=== PATIENT | female | born 2000 | race Caucasian/White ===

== ENCOUNTER 2019-01-01 20:33 | Emergency (ER) | payer OTHER ==
[2019-01-01] MEDS ORDERED: ACETAMINOPHEN 325 MG TABLET PO STA (21:15)
--- NOTE | 2019-01-01 21:16 | ED Physician Documentation ---
PD HPI URI - Stated complaint Stated Complaint: FEVER/CHEST PX - Chief complaint Chief Complaint: Resp - History obtained from History obtained from: Patient, Friend - History of Present Illness Timing - onset: Yesterday Timing duration: Days (2) Timing details: Gradual onset Pain level max: 3 Pain level now: 2 Associated symptoms: Fever, Nasal congestion, Sore throat, Dry cough Contributing factors: No: Travel, Immunocompromised, Unimmunized Improves by: Rest Worsened by: Activity, Breathing Recently seen: Not recently seen Review of Systems Ten Systems: 10 systems reviewed and negative Constitutional: reports: Fever, Chills Ears: denies: Ear pain Nose: reports: Rhinorrhea / runny nose, Congestion Throat: reports: Sore throat Respiratory: reports: Cough. denies: Dyspnea, Wheezing GI: denies: Nausea, Vomiting, Diarrhea : denies: Now EGA Skin: denies: Rash Musculoskeletal: denies: Neck pain, Back pain Neurologic: denies: Focal weakness, Numbness, Headache PD PAST MEDICAL HISTORY - Past Medical History Past Medical History: No - Past Surgical History Past Surgical History: No - Present Medications Home Medications: Ambulatory Orders Medication Instructions Recorded Confirmed No Known Home Medications 01/01/19 01/01/19 - Allergies Allergies/Adverse Reactions: Allergies Allergy/AdvReac Type Severity Reaction Status Date / Time Penicillins Allergy Hives Verified 01/01/19 20:53 - Social History Does the pt smoke?: Yes Smoking Status: Current every day smoker Does the pt drink ETOH?: No Does the pt have substance abuse?: No - Immunizations Immunizations are current?: Yes Immunizations: TDAP current <10years - POLST Patient has POLST: No PD ED PE NORMAL - Vitals Vital signs reviewed: Yes - General General: Alert and oriented X 3, No acute distress, Well developed/nourished - HEENT HEENT: PERRL, Ears normal, Moist mucous membranes, Other (Mild posterior oropharyngeal erythema without tonsillar exudates. Uvula midline. No trismus. Normal phonation.) - Neck Neck: Supple, no meningeal sign, No adenopathy - Cardiac Cardiac: RRR, Strong equal pulses - Respiratory Respiratory: No respiratory distress, Other (bibasilar rhonchi) - Abdomen Abdomen: Soft, Non tender, Non distended - Back Back: No spinal TTP - Derm Derm: Warm and dry, No rash - Extremities Extremities: No edema - Neuro Neuro: Alert and oriented X 3 - Psych Psych: Normal mood, Normal affect Results - Vitals Vitals: Vital Signs - 24 hr 01/01/19 01/01/19 20:51 22:20 Temperature 38.1 C H 37 C Heart Rate 121 H 101 H Respiratory 21 17 Rate Blood Pressure 114/73 126/68 O2 Saturation 100 99 Oxygen O2 Source Room air - Labs Labs: Laboratory Tests 01/01/19 21:13 Group A Strep Rapid Negative - Rads (name of study) cxr Radiology: Prelim report reviewed, EMP read contemporaneously, See rad report (normal) PD MEDICAL DECISION MAKING - ED course Complexity details: reviewed results, re-evaluated patient, considered differential, d/w patient ED course: 18-year-old female presents to the emergency department with what appears to be viral upper respiratory infection. Negative rapid strep. Negative chest x-ray. She states that her heart rate is always fast. We will continue supportive care and follow-up with her doctor. Patient is very well-appearing, nontoxic. Patient counseled regarding signs and symptoms for which I believe and urgent re-evaluation would be necessary. Patient with good understanding of and agreement to plan and is comfortable going home at this time This document was made in part using voice recognition software. While efforts are made to proofread this document, sound alike and grammatical errors may occur. Departure - Departure Disposition: 01 Home, Self Care Clinical Impression: Upper respiratory tract infection Qualifiers: URI type: unspecified viral URI Qualified Code(s): J06.9 - Acute upper respiratory infection, unspecified Condition: Good Instructions: ED URI Viral Follow-Up: your,doctor in 1 week if not better [Other] Comments: Return if you worsen. You can use Motrin or Tylenol as needed for fever. Your x-ray is normal and your strep test is negative. Follow-up with your doctor for further care. Forms: Activity restrictions Discharge Date/Time: 01/01/19 22:20
--- NOTE | 2019-01-01 22:10 | XRAY Report ---
Reason: cough Procedure Date: 01/01/2019 Accession Number: [id number] / [id number] Procedure: XR - Chest 2 View X-Ray CPT Code: 03211 FULL RESULT: EXAM: CHEST RADIOGRAPHY EXAM DATE: 01/01/2019 09:30 PM. CLINICAL HISTORY: Cough. COMPARISON: None. TECHNIQUE: 2 views. FINDINGS: Lungs/Pleura: No focal opacities evident. No pleural effusion. No pneumothorax. Normal volumes. Mediastinum: Heart and mediastinal contours are unremarkable. Other: None. IMPRESSION: Normal 2-view chest radiography. [facility]
[2019-01-01 22:22] VITALS: BP 126/68
== END 2019-01-01 22:20 | disposition home or self-care (01) ==
LOC: ED 20:33
DX: J06.9 Acute upper respiratory infection, unspecified (principal); F17.200 Nicotine dependence, unspecified, uncomplicated
CPT/HCPCS: 71046; 87070; 87430; 99283; A9270

== ENCOUNTER 2019-04-24 14:58 | Emergency (ER) | payer OTHER ==
[2019-04-24 15:03] VITALS: BP 130/100
--- NOTE | 2019-04-24 16:04 | ED Physician Documentation ---
History of Present Illness - Stated complaint Stated Complaint: L EYE SWELLING - Chief complaint Chief Complaint: Heent - History obtained from History obtained from: Patient - History of Present Illness Timing: Today Pain level max: 0 Pain level now: 0 - Additonal information Additional information: L upper eyelid swelling. Started today. Used warm compresses x 1. no change. no fevers. no vision changes. nothing makes it better or worse Review of Systems Constitutional: denies: Fever, Chills Eyes: denies: Decreased vision, Photophobia Nose: denies: Rhinorrhea / runny nose, Congestion GI: denies: Vomiting Skin: denies: Rash Musculoskeletal: denies: Neck pain, Back pain Neurologic: denies: Headache PD PAST MEDICAL HISTORY - Past Medical History Past Medical History: No - Past Surgical History Past Surgical History: No - Present Medications Home Medications: Ambulatory Orders Medication Instructions Recorded Confirmed Erythromycin Base [Erythromycin 1 applic LEFTEYE QPM #1 oint...g. 04/24/19 Ophthalmic Ointment] - Allergies Allergies/Adverse Reactions: Allergies Allergy/AdvReac Type Severity Reaction Status Date / Time Penicillins Allergy Hives Verified 04/24/19 15:03 - Social History Does the pt smoke?: Yes Smoking Status: Current every day smoker Does the pt drink ETOH?: No Does the pt have substance abuse?: No - Immunizations Immunizations are current?: Yes Immunizations: TDAP current <10years - POLST Patient has POLST: No PD ED PE NORMAL - Vitals Vital signs reviewed: Yes - General General: Alert and oriented X 3, No acute distress - HEENT HEENT: Moist mucous membranes, Other (Left upper eyelid is mildly swollen otherwise normal exam of the eye and periorbital area. No drainage.) - Neck Neck: Supple, no meningeal sign - Cardiac Cardiac: RRR - Respiratory Respiratory: No respiratory distress, Clear bilaterally - Derm Derm: Warm and dry - Neuro Neuro: Alert and oriented X 3 Results - Vitals Vitals: Vital Signs - 24 hr 04/24/19 15:01 Temperature 36.6 C Heart Rate 100 Respiratory 19 Rate Blood Pressure 130/100 H O2 Saturation 98 Oxygen O2 Source Room air PD MEDICAL DECISION MAKING - ED course Complexity details: considered differential, d/w patient ED course: Patient with left upper eyelid blepharitis. Recommend lid cleansing and warm compresses. Will prescribe erythromycin ointment as well. Patient is well- appearing, nontoxic. Does not wear contacts. Patient counseled regarding signs and symptoms for which I believe and urgent re-evaluation would be necessary. Patient with good understanding of and agreement to plan and is comfortable going home at this time This document was made in part using voice recognition software. While efforts are made to proofread this document, sound alike and grammatical errors may occur. Departure - Departure Disposition: 01 Home, Self Care Clinical Impression: Blepharitis of eyelid of left eye Qualifiers: Blepharitis type: unspecified type Eyelid: upper Qualified Code(s): H01.004 - Unspecified blepharitis left upper eyelid Condition: Good Instructions: ED Inflammation Eyelid Follow-Up: BRIAN SOTELO DO [Primary Care Provider] - Within 1 week Prescriptions: Erythromycin Base [Erythromycin Ophthalmic Ointment] 1 applic LEFTEYE QPM #1 oint...g. Comments: Put warm, wet pressure on your eyes Wet a clean wash cloth with warm (not scalding hot) water and put it over your eyes. When the wash cloth cools, reheat it with warm water and put it back over your eyes. Repeat these steps for 5 minutes, 2 to 4 times a day. ?Gently rub your eyelids Do this right after putting warm, wet pressure on your eyes. Use the washcloth or a clean fingertip to gently rub your eyelid in small circles. ?Wash your eyelids Use plain warm water or warm water with a drop of baby shampoo on a clean washcloth, gauze pad, or cotton swab. Gently clean any crusty material off the eyelashes and eyelids. Do not rub hard or you can cause more irritation. You can also use [id number] eyelid scrubs and pads. Return if you worsen. Use the medication as prescribed. This may take 1 to 2 weeks to fully heal Discharge Date/Time: 04/24/19 16:24
== END 2019-04-24 16:24 | disposition home or self-care (01) ==
LOC: ED 14:58
DX: H01.004 Unspecified blepharitis left upper eyelid (principal); F17.200 Nicotine dependence, unspecified, uncomplicated
CPT/HCPCS: 99282; 99283

== ENCOUNTER 2019-04-28 16:21 | Emergency (ER) | payer OTHER ==
[2019-04-28 16:30] VITALS: BP 130/85
--- NOTE | 2019-04-28 17:40 | ED Physician Documentation ---
History of Present Illness - Stated complaint Stated Complaint: THROAT PX/SWELLING - Chief complaint Chief Complaint: General PD PAST MEDICAL HISTORY - Past Medical History Past Medical History: No - Past Surgical History Past Surgical History: No - Present Medications Home Medications: Ambulatory Orders Medication Instructions Recorded Confirmed Erythromycin Base [Erythromycin 1 applic LEFTEYE QPM #1 oint...g. 04/24/19 Ophthalmic Ointment] - Allergies Allergies/Adverse Reactions: Allergies Allergy/AdvReac Type Severity Reaction Status Date / Time Penicillins Allergy Hives Verified 04/24/19 15:03 - Social History Does the pt smoke?: Yes Smoking Status: Current every day smoker Does the pt drink ETOH?: No Does the pt have substance abuse?: No - Immunizations Immunizations are current?: Yes Immunizations: TDAP current <10years - POLST Patient has POLST: No Results - Vitals Vitals: Vital Signs - 24 hr 04/28/19 16:27 Temperature 36.9 C Heart Rate 94 Respiratory 16 Rate Blood Pressure 130/85 H O2 Saturation 100 Oxygen O2 Source Room air - Labs Labs: Laboratory Tests 04/28/19 16:30 Group A Strep Rapid Negative
[2019-04-28] MEDS ORDERED: DEXAMETHASONE 10 MG/ML VIAL PO STA (17:46)
[2019-04-28] MEDS ORDERED: CHERRY SYRUP 10 ML UDC PO ONE (17:46)
--- NOTE | 2019-04-28 17:48 | ED Physician Documentation ---
PD HPI HEENT - Stated complaint Stated Complaint: THROAT PX/SWELLING - Chief complaint Chief Complaint: General - History obtained from History obtained from: Patient - History of Present Illness Timing - onset: How many days ago (2) Timing - duration: Days (2) Timing - details: Gradual onset, Still present Location: Throat Improves: Medication Worsens: Swalllowing Associated symptoms: Fever, Congestion, Unable to swallow, Swollen nodes, Headache. No: Cough Similar symptoms before: Diagnosis (strep) Recently seen: Not recently seen - Additional information Additional information: Previously well 18-year-old female has developed a sore throat she denies any cough she is had a fever and aches. She is having some trouble swallowing even her spit. She has a bit of pain in the back of her throat and some swelling. Review of Systems Constitutional: reports: Fever, Chills, Myalgias, Fatigue Eyes: denies: Decreased vision Ears: denies: Ear pain Nose: reports: Rhinorrhea / runny nose, Congestion Throat: reports: Sore throat Cardiac: denies: Chest pain / pressure, Palpitations Respiratory: denies: Dyspnea, Cough GI: reports: Diarrhea. denies: Abdominal Pain, Nausea, Vomiting : denies: Dysuria, Frequency PD PAST MEDICAL HISTORY - Past Medical History Past Medical History: No - Past Surgical History Past Surgical History: No - Present Medications Home Medications: Ambulatory Orders Medication Instructions Recorded Confirmed Erythromycin Base [Erythromycin 1 applic LEFTEYE QPM #1 oint...g. 04/24/19 Ophthalmic Ointment] Azithromycin [Zithromax] 250 mg PO DAILY #6 tablet 04/28/19 - Allergies Allergies/Adverse Reactions: Allergies Allergy/AdvReac Type Severity Reaction Status Date / Time Penicillins Allergy Hives Verified 04/24/19 15:03 - Social History Does the pt smoke?: Yes Smoking Status: Current every day smoker Does the pt drink ETOH?: No Does the pt have substance abuse?: No - Immunizations Immunizations are current?: Yes Immunizations: TDAP current <10years - POLST Patient has POLST: No PD ED PE NORMAL - Vitals Vital signs reviewed: Yes (hypertensive ) - General General: Alert and oriented X 3, No acute distress, Well developed/nourished - HEENT HEENT: Atraumatic, PERRL, EOMI, Ears normal, Other (pharynx is with 3+ tonsils with exudate and marked erythema. there are no blisters or ulcerations) - Neck Neck: Supple, no meningeal sign, No bony TTP - Cardiac Cardiac: RRR, No murmur - Respiratory Respiratory: No respiratory distress, Clear bilaterally - Abdomen Abdomen: Soft, Non tender - Derm Derm: Normal color, Warm and dry, No rash - Extremities Extremities: No deformity, No edema - Neuro Neuro: Alert and oriented X 3, price economist 2-12 intact, No motor deficit, No sensory deficit, Normal speech Eye Opening: Spontaneous Motor: Obeys Commands Verbal: Oriented GCS Score: 15 - Psych Psych: Normal mood, Normal affect Results - Vitals Vitals: Vital Signs - 24 hr 04/28/19 16:27 Temperature 36.9 C Heart Rate 94 Respiratory 16 Rate Blood Pressure 130/85 H O2 Saturation 100 Oxygen O2 Source Room air - Labs Labs: Laboratory Tests 04/28/19 16:30 Group A Strep Rapid Negative PD MEDICAL DECISION MAKING - ED course Complexity details: reviewed results, considered differential, d/w patient ED course: 18-year-old female with a sore throat as marked tonsillar hypertrophy with exudate and angry erythema her rapid strep is negative. She is administered Dexamethasone 10 mg orally we will place her on some azithromycin as she is allergic to penicillin and we will give her a note for work for 3 days. Departure - Departure Disposition: 01 Home, Self Care Clinical Impression: Acute tonsillitis Qualifiers: Pharyngitis/tonsillitis etiology: unspecified etiology Qualified Code(s): J03.90 - Acute tonsillitis, unspecified Condition: Stable Instructions: ED Tonsillitis Follow-Up: [facility] [Provider Group] Prescriptions: Azithromycin [Zithromax] 250 mg PO DAILY #6 tablet Forms: Activity restrictions
== END 2019-04-28 17:57 | disposition home or self-care (01) ==
LOC: ED 16:21
DX: J03.90 Acute tonsillitis, unspecified (principal); F17.200 Nicotine dependence, unspecified, uncomplicated
CPT/HCPCS: 87070; 87430; 99283; 99284; A9270

== ENCOUNTER 2020-08-09 19:16 | Emergency (ER) | payer OTHER ==
[2020-08-09] MEDS ORDERED: SODIUM CHLORIDE 0.9% 1,000 ML IV STA (19:31)
--- NOTE | 2020-08-09 19:42 | ED Physician Documentation ---
History of Present Illness - Stated complaint Stated Complaint: LEGS SWELLING - Chief complaint Chief Complaint: Wound - History obtained from History obtained from: Patient - History of Present Illness Timing: Prior to arrival - Additonal information Additional information: 20-year-old female presents emergency department for evaluation of a new rash that began on her right leg but has since progressed to include her left leg. She was started on Celecoxib yesterday for dysmenorrhea. She took 1 dose last night. This morning she woke up feeling normal and had no cutaneous lesions. About 2 PM this afternoon she felt some itchiness and swelling on her right medial knee and thigh. She went to the bathroom and found that she had some erythema that has since progressed to include behind the knee as well as the thigh. The distal parts of the rash do have some minor petechiae. Since seeing the rash develop on the right leg she has also had new similar appearance on the left medial knee and thigh. She denies any chest pain or dyspnea. She has no oral lesions. No hx of similar reports hx of hives secondary to pcn and amoxicillin has nexplanon in place. No hx of DVT Review of Systems Constitutional: reports: Reviewed and negative Eyes: reports: Reviewed and negative Ears: reports: Reviewed and negative Nose: reports: Reviewed and negative Throat: denies: Oral lesions / sores Cardiac: denies: Chest pain / pressure, Palpitations, Pedal edema, Calf pain Respiratory: reports: Reviewed and negative GI: reports: Reviewed and negative : reports: Dysuria Skin: reports: Rash Musculoskeletal: reports: Reviewed and negative Neurologic: reports: Reviewed and negative PD PAST MEDICAL HISTORY - Past Medical History Past Medical History: Yes - Past Surgical History Past Surgical History: No - Present Medications Home Medications: Ambulatory Orders Medication Instructions Recorded Confirmed Celecoxib [Celebrex] 200 mg PO DAILY 08/09/20 08/09/20 diphenhydrAMINE [Benadryl] 25 mg PO BID #15 capsule 08/09/20 - Allergies Allergies/Adverse Reactions: Allergies Allergy/AdvReac Type Severity Reaction Status Date / Time celecoxib Allergy Rash Verified 08/09/20 21:43 Penicillins Allergy Hives Verified 08/09/20 19:24 - Social History Does the pt smoke?: Yes Smoking Status: Current every day smoker Does the pt drink ETOH?: No Does the pt have substance abuse?: No - Immunizations Immunizations are current?: Yes Immunizations: TDAP current <10years - POLST Patient has POLST: No PD ED PE EXPANDED - General General: Alert, No acute distress, Anxious - Neck Neck: Supple w/out meningeal sx. No: No tenderness - Cardiac Cardiac: Tachy, Radial strong equal, Femoral strong equal, Pedal strong equal, Cap refill < 2 sec - Respiratory Respiratory: Clear to ausultation nina. No: Distress, Labored - Abdomen Abdomen: Normal Bowel sounds. No: Tender to palpation - Derm Derm: Rash, Petecchiae, Other (Bilateral medial knees and inner thighs with extensive blanchable erythema. Nonvesicular. Distal edges of the rash show multiple small petechiae.) - Extremities Extremities: Normal, Pedal Pulses Present. No: Pedal edema R, Pedal edema L, Pedal edema bilateral, Right calf TTP/cord, Left calf TTP/cord - Neuro Neuro: Alert and Oriented X 3, CNII-XII intact, Normal gait, Normal finger nose, Normal speech - GCS Eye Opening: Spontaneous Motor: Obeys Commands Verbal: Oriented Total: 15 Results - Vitals Vitals: Vital Signs - 24 hr 08/09/20 08/09/20 08/09/20 19:17 19:28 20:11 Temperature 37.5 C 37.5 C 37.5 C Heart Rate 121 H 121 H 96 Respiratory 17 17 17 Rate Blood Pressure 134/67 H 134/67 H 134/66 H O2 Saturation 100 100 100 Oxygen O2 Source Room air - Labs Labs: Laboratory Tests 08/09/20 08/09/20 08/09/20 19:40 19:40 19:40 WBC 8.5 RBC 4.79 Hgb 14.5 Hct 42.4 MCV 88.5 MCH 30.3 MCHC 34.2 RDW 12.0 Plt Count 192 MPV 10.4 Neut # (Auto) 4.4 Lymph # (Auto) 3.2 George # (Auto) 0.7 Eos # (Auto) 0.1 Baso # (Auto) 0.0 Absolute Nucleated RBC 0.00 Nucleated RBC % 0.0 ESR PT 12.2 INR 1.1 Sodium 136 Potassium 3.1 L Chloride 101 Carbon Dioxide 25 Anion Gap 10.0 BUN 16 Creatinine 0.8 Estimated GFR (MDRD) 91 Glucose 121 H Calcium 9.4 Total Bilirubin 0.7 AST 15 ALT 13 Alkaline Phosphatase 60 C-Reactive Protein < 1.0 Total Protein 6.9 Albumin 4.1 Globulin 2.8 Albumin/Globulin Ratio 1.5 Lipase 22 Urine Color Urine Clarity Urine pH Ur Specific [place] Urine Protein Urine Glucose (UA) Urine Ketones Urine Occult Blood Urine Nitrite Urine Bilirubin Urine Urobilinogen Ur Leukocyte Esterase Urine RBC Urine WBC Ur Squamous Epith Cells Urine Bacteria Ur Microscopic Review Urine Culture Comments Urine HCG, Qual 08/09/20 08/09/20 08/09/20 19:40 20:23 20:23 WBC RBC Hgb Hct MCV MCH MCHC RDW Plt Count MPV Neut # (Auto) Lymph # (Auto) George # (Auto) Eos # (Auto) Baso # (Auto) Absolute Nucleated RBC Nucleated RBC % ESR 2 PT INR Sodium Potassium Chloride Carbon Dioxide Anion Gap BUN Creatinine Estimated GFR (MDRD) Glucose Calcium Total Bilirubin AST ALT Alkaline Phosphatase C-Reactive Protein Total Protein Albumin Globulin Albumin/Globulin Ratio Lipase Urine Color YELLOW Urine Clarity CLEAR Urine pH 6.5 Ur Specific [place] 1.025 1.025 Urine Protein NEGATIVE Urine Glucose (UA) NEGATIVE Urine Ketones NEGATIVE Urine Occult Blood LARGE H Urine Nitrite NEGATIVE Urine Bilirubin NEGATIVE Urine Urobilinogen 0.2 (NORMAL) Ur Leukocyte Esterase NEGATIVE Urine RBC 6-10 H Urine WBC 0-3 Ur Squamous Epith Cells RARE Squamous Urine Bacteria Rare Ur Microscopic Review INDICATED Urine Culture Comments NOT INDICATED Urine HCG, Qual NEGATIVE - Rads (name of study) US DVT Radiology: See rad report, Other (Tech reports that no DVT seen on bilateral lower extremity ultrasound.) PD MEDICAL DECISION MAKING - ED course Complexity details: reviewed results, re-evaluated patient, considered differential, d/w patient ED course: 20-year-old female presents the emergency department for evaluation of a rash that developed first on her right inner thigh and now her left inner thigh since about 2 PM this afternoon. It is a diffuse macular rash nonvesicular And does have petechiae on the outlying edges. - Given that this rash is on both medial sides of the knees and thighs, it is felt less likely to be cellulitis. In addition there is no fever or leukocytosis - Differential for this rash also includes an allergic vasculitis vs a dermatitis. Reassuringly her blood count is normal. She has no eosinophilia. Her kidney and liver function is preserved without any abnormalities. A urinanylasis was completed. She is currently on her menses which explains the RBCs. She is not spilling protein. - I feel that the most likely etiology of this rash is an allergic reaction to this lock sib which she took last night. Here in the emergency department she was given 50 mg of Benadryl as well as 10 mg of Decadron. An ultrasound will be completed to rule out deep vein thrombosis though suspicion for one at this time is clinically low. - Patient will be advised to follow-up closely with [facility] tomorrow. If the rash is worsening or extending, she develops Nikolsky sign or has any oral lesions she will return immediately to the ER - Departure - Departure Disposition: Home, Self Care Clinical Impression: Rash Allergic reaction caused by a drug Qualifiers: Encounter type: initial encounter Qualified Code(s): T78.40XA - Allergy, unspecified, initial encounter Condition: Stable Record reviewed to determine appropriate education?: Yes Prescriptions: diphenhydrAMINE [Benadryl] 25 mg PO BID #15 capsule Comments: I hope that you are feeling better soon. As we discussed the most likely cause of your rash is an allergic reaction to the Celebrex. Do not take this anymore. I have added it to your allergy list. I would like you to take the Benadryl twice a day for the next few days. Today you were also given a dose of Decadron in the emergency department and this is a steroid that should help with the rash over the next 2 to 3 days. Please discuss this ED visit with [facility] tomorrow. If you find that your rash is worsening in any way, you develop blistering, have blisters or lesions in your mouth, have any shortness of breath or chest pain please return immediately to the ER.
[2020-08-09 19:47] LABS: BASOPHILS % (AUTO) 0.2 %; EOSINOPHILS # (AUTO) 0.1 10^3/uL (0.0-0.7); EOSINOPHILS % (AUTO) 0.9 %; HGB - HEMOGLOBIN 14.5 g/dL (12.0-16.0); LYMPHOCYTES # (AUTO) 3.2 10^3/uL (1.5-3.5); MEAN CORPUSCULAR HEMOGLOBIN 30.3 pg (27.0-31.0); MEAN CORPUSCULAR HGB CONC 34.2 g/dL (32.0-36.0); MEAN CORPUSCULAR VOLUME 88.5 fL (81.0-99.0); MEAN PLATELET VOLUME 10.4 fL (7.9-10.8); MONOCYTES # (AUTO) 0.7 10^3/uL (0.0-1.0); MONOCYTES % (AUTO) 8.5 %; NEUTROPHILS # (AUTO) 4.4 10^3/uL (1.5-6.6); PLT - PLATELET COUNT 192 10^3/uL (130-450); RED BLOOD COUNT 4.79 10^6/uL (4.20-5.40); WHITE BLOOD COUNT 8.5 x10^3/uL (4.8-10.8)
[2020-08-09 19:53] LABS: INR 1.1 (0.8-1.2); PT - PROTHROMBIN TIME 12.2 secs (9.9-12.6)
[2020-08-09] MEDS ORDERED: diphenhydrAMINE INJ 50 MG/ML VIAL IVP STA (19:57)
[2020-08-09 20:06] LABS: ALBUMIN 4.1 g/dL (3.2-5.5); ALBUMIN/GLOBULIN RATIO 1.5 (1.0-2.2); ALKALINE PHOSPHATASE 60 IU/L (42-121); ALT ALANINE AMINOTRANSFERASE 13 IU/L (10-60); AST ASPARTATE AMINOTRANSFERASE 15 IU/L (10-42); BILIRUBIN,TOTAL 0.7 mg/dL (0.2-1.0); BUN - BLOOD UREA NITROGEN 16 mg/dL (6-20); CALCIUM 9.4 mg/dL (8.5-10.3); CARBON DIOXIDE - CO2 25 mmol/L (21-32); CHLORIDE 101 mmol/L (101-111); CREATININE 0.8 mg/dL (0.4-1.0); GLUCOSE 121 mg/dL (70-100); LIPASE 22 U/L (22-51); SODIUM 136 mmol/L (135-145); TOTAL PROTEIN 6.9 g/dL (6.7-8.2)
[2020-08-09 20:09] LABS: CRP - C-REACTIVE PROTEIN < 1.0 mg/dL (0-1.0)
[2020-08-09] MEDS ORDERED: DEXAMETHASONE 10 MG/ML VIAL PO STA (20:21)
[2020-08-09] MEDS ORDERED: CHERRY SYRUP 10 ML UDC PO ONE (20:21)
[2020-08-09 20:37] LABS: BILIRUBIN,URINE NEGATIVE (NEGATIVE); GLUCOSE, URINE (UA) NEGATIVE (NEGATIVE); KETONES,URINE (UA) NEGATIVE (NEGATIVE); LEUKOCYTE ESTERASE, URINE NEGATIVE (NEGATIVE); NITRITE,URINE NEGATIVE (NEGATIVE); OCCULT BLOOD,URINE LARGE (NEGATIVE); PH,URINE 6.5 PH (5.0-7.5); PROTEIN,URINE NEGATIVE (NEGATIVE); UROBILINOGEN,URINE 0.2 (NORMAL) E.U./dL (NORMAL)
[2020-08-09 20:40] LABS: CLARITY,URINE CLEAR (CLEAR); HCG UR QUAL NEGATIVE
[2020-08-09 20:49] LABS: BACTERIA,URINE Rare /HPF (None Seen); SQUAMOUS EPITHELIAL CELL,UR RARE Squamous (<= Few)
[2020-08-09 22:07] VITALS: BP 120/78
--- NOTE | 2020-08-09 22:22 | Ultrasound Report ---
PROCEDURE: Duplex Ext Veins Bilateral INDICATIONS: AIDE FRANKS TECHNIQUE: Real-time imaging, as well as color and pulse Doppler interrogation, were performed of the deep veins of both legs from the inguinal ligament to the popliteal fossa. COMPARISON: None. FINDINGS: The deep veins are normally compressible, and free of intraluminal thrombus. Color and pu lse Doppler demonstrate normal phasic intravascular flow. There is normal augmentation response to d istal compression maneuver. IMPRESSION: No deep vein thrombosis of the bilateral lower extremities. Reviewed by: Becca Hare MD on 08/09/2020 10:20 PM PST Approved by: Becca Hare MD on 08/09/2020 10:20 PM [facility] Station ID: [id number]
== END 2020-08-09 22:14 | disposition home or self-care (01) ==
LOC: ED 19:16
DX: L27.1 Localized skin eruption due to drugs and medicaments taken internally (principal); R22.43 Localized swelling, mass and lump, lower limb, bilateral; T39.395A Adverse effect of other nonsteroidal anti-inflammatory drugs [NSAID], initial encounter; F17.200 Nicotine dependence, unspecified, uncomplicated; Z88.0 Allergy status to penicillin
CPT/HCPCS: 36415; 80053; 81001; 81025; 83690; 85025; 85610; 85651; 86140; 93970; 96361; 96374; 99284; A9270; J1200; 81003; 87086

== ENCOUNTER 2021-01-02 10:44 | Emergency (ER) | payer OTHER ==
--- OUTSIDE RECORDS SUMMARY | 2021-01-02 11:30 | EXTERNAL MEDICAL SUMMARY RPT | Continuity of Care Document ---
:2000 Demographics Phone Unavailable Preferred Language Unknown Marital Status Unknown Confucianist Affiliation Unknown Race Unknown Ethnic Group Unknown Author Organization [facility] Address [address] [id number] Phone Social History date description facility [id number]
[2021-01-02 12:19] LABS: BASOPHILS % (AUTO) 0.2 %; EOSINOPHILS % (AUTO) 0.4 %; HCT - HEMATOCRIT 42.9 % (37.0-47.0); HGB - HEMOGLOBIN 14.7 g/dL (12.0-16.0); LYMPHOCYTES # (AUTO) 2.2 10^3/uL (1.5-3.5); LYMPHOCYTES % (AUTO) 24.9 %; MEAN CORPUSCULAR HEMOGLOBIN 30.2 pg (27.0-31.0); MEAN CORPUSCULAR HGB CONC 34.3 g/dL (32.0-36.0); MEAN CORPUSCULAR VOLUME 88.3 fL (81.0-99.0); MEAN PLATELET VOLUME 10.1 fL (7.9-10.8); MONOCYTES # (AUTO) 0.7 10^3/uL (0.0-1.0); MONOCYTES % (AUTO) 8.3 %; NEUTROPHILS # (AUTO) 5.9 10^3/uL (1.5-6.6); PLT - PLATELET COUNT 207 10^3/uL (130-450); RED BLOOD COUNT 4.86 10^6/uL (4.20-5.40); RED CELL DISTRIBUTION WIDTH 11.9 % (12.0-15.0)
[2021-01-02 12:32] LABS: ALBUMIN 4.4 g/dL (3.2-5.5); ALBUMIN/GLOBULIN RATIO 1.4 (1.0-2.2); BILIRUBIN,TOTAL 0.8 mg/dL (0.2-1.0); CALCIUM 9.5 mg/dL (8.5-10.3); CREATININE 0.6 mg/dL (0.4-1.0); POTASSIUM 3.9 mmol/L (3.5-5.0); TOTAL PROTEIN 7.6 g/dL (6.7-8.2)
--- NOTE | 2021-01-02 13:15 | ED Physician Documentation ---
PD HPI FEMALE - Stated complaint Stated Complaint: VOMITING BLOOD - Chief complaint Chief Complaint: Abd Pain - History obtained from History obtained from: Patient - History of Present Illness Timing - onset: Today, Last night Timing - duration: Hours Timing - details: Abrupt onset, Still present Associated symptoms: Abdominal pain, Pelvic pain (right lower abd). 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 Has initial appt tomorrow. Onset of RLQ pain abruptly today.) Review of Systems Constitutional: denies: Fever, Chills Nose: denies: Rhinorrhea / runny nose, Congestion Throat: denies: Sore throat Cardiac: denies: Chest pain / pressure Respiratory: denies: Cough GI: reports: Abdominal Pain, Nausea, Vomiting (onset after the RLQ pain. nausea with vomiting several times and noted red blood in emesis after initial vomit.), Hematemesis. denies: Constipation, Diarrhea Neurologic: reports: Generalized weakness. denies: Near syncope, Syncope PD PAST MEDICAL HISTORY - Past Medical History Cardiovascular: None Respiratory: None - Past Surgical History Past Surgical History: No - Present Medications Home Medications: Ambulatory Orders Medication Instructions Recorded Confirmed Celecoxib [Celebrex] 200 mg PO DAILY 08/09/20 08/09/20 diphenhydrAMINE [Benadryl] 25 mg PO BID #15 capsule 08/09/20 Famotidine [Pepcid] 20 mg PO DAILY #20 tablet 01/02/21 Ibuprofen [Motrin] 600 mg PO TID PRN #15 tab 01/02/21 Ondansetron Odt [Zofran] 4 mg TL Q6H PRN #10 tablet 01/02/21 - Allergies Allergies/Adverse Reactions: Allergies Allergy/AdvReac Type Severity Reaction Status Date / Time celecoxib Allergy Rash Verified 01/02/21 11:22 Penicillins Allergy Hives Verified 01/02/21 11:22 - Social History Does the pt smoke?: Yes Smoking Status: Current every day smoker Does the pt drink ETOH?: No Does the pt have substance abuse?: No - Immunizations Immunizations are current?: Yes Immunizations: TDAP current <10years - POLST Patient has POLST: No PD ED PE NORMAL - Vitals Vital signs reviewed: Yes - General General: Alert and oriented X 3, Well developed/nourished, Other (appears in pain right lower abd. ) - HEENT HEENT: Pharynx benign - Neck Neck: Supple, no meningeal sign, No adenopathy - Cardiac Cardiac: RRR, No murmur - Respiratory Respiratory: Clear bilaterally - Abdomen Abdomen: Normal bowel sounds, Soft, Non distended, No organomegaly, Other (tender RLQ with local guarding. No percussion nor referred tenderness. Mild rebound lower mid and right abd. ) - Female Female : Deferred - Rectal Rectal: Deferred - Back Back: No CVA TTP - Derm Derm: Normal color, Warm and dry - Neuro Eye Opening: Spontaneous Motor: Obeys Commands Verbal: Oriented GCS Score: 15 Results - Vitals Vitals: Vital Signs - 24 hr 01/02/21 01/02/21 01/02/21 11:14 13:35 15:03 Temperature 36.7 C Heart Rate 108 H 92 104 H Respiratory 16 16 18 Rate Blood Pressure 113/67 116/76 113/63 O2 Saturation 99 100 100 Oxygen O2 Source Room air - Labs Labs: Laboratory Tests 01/02/21 01/02/21 01/02/21 12:08 12:08 12:08 WBC 9.0 RBC 4.86 Hgb 14.7 Hct 42.9 MCV 88.3 MCH 30.2 MCHC 34.3 RDW 11.9 L Plt Count 207 MPV 10.1 Neut # (Auto) 5.9 Lymph # (Auto) 2.2 [place] # (Auto) 0.7 Eos # (Auto) 0.0 Baso # (Auto) 0.0 Absolute Nucleated RBC 0.00 Nucleated RBC % 0.0 Sodium 136 Potassium 3.9 Chloride 101 Carbon Dioxide 24 Anion Gap 11.0 BUN 12 Creatinine 0.6 Estimated GFR (MDRD) 126 Glucose 80 Calcium 9.5 Total Bilirubin 0.8 AST 19 ALT 22 Alkaline Phosphatase 46 Total Protein 7.6 Albumin 4.4 Globulin 3.2 Albumin/Globulin Ratio 1.4 Lipase 17 L HCG, Quant 020517.00 - Rads (name of study) OB U?S Radiology: Prelim report reviewed (8 cm right ovarian cyst with good ovarian blood flow, no free fluid, and normal IUP at 7 week size. ), See rad report PD MEDICAL DECISION MAKING - ED course Complexity details: re-evaluated patient (patient states pain is well improved. ), considered differential, d/w patient Departure - Departure Disposition: 01 Home, Self Care Clinical Impression: RLQ abdominal pain, Intrauterine Hematemesis Qualifiers: Nausea presence: with nausea Qualified Code(s): K92.0 - Hematemesis Nausea & vomiting Qualifiers: Vomiting type: hematemesis Qualified Code(s): K92.0 - Hematemesis Ovarian cyst Qualifiers: Laterality: right Qualified Code(s): N83.201 - Unspecified ovarian cyst, right side Condition: Stable Record reviewed to determine appropriate education?: Yes Instructions: ED Cyst Ovarian, ED Nausea Vomiting Follow-Up: TRESSA BOWMAN MD [Primary Care Provider] - Prescriptions: Ibuprofen [Motrin] 600 mg PO TID PRN #15 tab PRN Reason: Pain Famotidine [Pepcid] 20 mg PO DAILY #20 tablet Ondansetron Odt [Zofran] 4 mg TL Q6H PRN #10 tablet PRN Reason: Nausea / Vomiting Comments: Frequent fluids to stay well-hydrated. Use ondansetron if needed for nausea. I presume the vomiting of blood was related to irritation of the stomach from vomiting. I would anticipate this healing up with some acid reducing medicine and bland food for the next several days. Acid reducing medicine famotidine daily for the next week or 2. Your lower abdominal pain appears to be related to an ovarian cyst is 8 cm by report. There is no signs of rupture of it nor free fluid in the pelvis. You do have a normal in the uterus proximately 6 or 7 weeks size. I printed your lab tests results as well. Follow-up with your primary care tomorrow as scheduled. Return if worsening. Ondansetron if needed for nausea. Ibuprofen 2-3 times a day for pain. This is okay in early up to about 20 weeks. Add Tylenol if needed for pain and Tylenol is good through all of . Return if worse. Discharge Date/Time: 01/02/21 15:40
[2021-01-02] MEDS ORDERED: SODIUM CHLORIDE 0.9% 1,000 ML IV STA (13:16)
[2021-01-02] MEDS ORDERED: KETOROLAC 30 MG/ML VIAL IVP STA (13:16)
[2021-01-02] MEDS ORDERED: ONDANSETRON 4 MG/2 ML VIAL IVP STA (14:45)
[2021-01-02] MEDS ORDERED: FAMOTIDINE 20 MG/2 ML VIAL IVP STA (14:46)
[2021-01-02 15:04] VITALS: BP 113/63
--- NOTE | 2021-01-02 15:41 | Ultrasound Report ---
PROCEDURE: OB First Trimester w/TV INDICATIONS: LOWER ABD PAIN, EARLY OUTSIDE/PRIOR DATING DATA: Last menstrual period (LMP): 10/28/2020. LMP-based estimated date of delivery (JAGRUTI): 08/04/2021. First dating scan (date and location): 01/02/2021. Estimated date of delivery (JAGRUTI) from first dating scan: 08/25/2021. TECHNIQUE: Real-time scanning was performed of the fetus and maternal pelvic organs, with image documentation. Endovaginal scanning was also performed to better visualize the fetus and maternal ovaries. COMPARISON: FINDINGS: Embryo: Single live intrauterine is identified with crown-rump length measuring 0.6 cm cor responding to 6 weeks 3 days. heart rate is identified at 124 bpm. Measurement variability in dating: +/- 4 weeks by LMP, +/- 7 days by mean sac diameter (use before 6 weeks gestation if crown-rump length not able to be measured), +/- 5 days by crown-rump length (6-12 weeks gestation). Maternal organs: Ovaries demonstrate a right ovarian cyst measuring 8.1 x 7.3 x 4.8 cm.. IMPRESSION: 1. Single live intrauterine with ultrasound gestational age of 6 weeks 3 days corresponding to ultrasound JAGRUTI of 08/25/2021. 2. Prominent right ovarian cyst. Reviewed by: Tameka Doran MD on 01/02/2021 2:39 PM [facility] Approved by: Tameka Doran MD on 01/02/2021 2:39 PM [facility] Station ID: [id number]
== END 2021-01-02 15:40 | disposition home or self-care (01) ==
LOC: ED 10:44
DX: O99.891 Other specified diseases and conditions complicating pregnancy (principal); R10.31 Right lower quadrant pain; O34.81 Maternal care for other abnormalities of pelvic organs, first trimester; N83.201 Unspecified ovarian cyst, right side; O99.611 Diseases of the digestive system complicating pregnancy, first trimester; K92.0 Hematemesis; O99.331 Smoking (tobacco) complicating pregnancy, first trimester; F17.200 Nicotine dependence, unspecified, uncomplicated; Z3A.01 Less than 8 weeks gestation of pregnancy
CPT/HCPCS: 36415; 80053; 83690; 84702; 85025; 96374; 96375; 99283

== ENCOUNTER 2022-07-29 12:21 | Emergency (ER) | payer OTHER ==
[2022-07-29 12:45] LABS: BASOPHILS % (AUTO) 0.4 %; EOSINOPHILS % (AUTO) 0.4 %; HCT - HEMATOCRIT 43.7 % (37.0-47.0); HGB - HEMOGLOBIN 14.5 g/dL (12.0-16.0); LYMPHOCYTES # (AUTO) 0.6 10^3/uL (1.5-3.5); LYMPHOCYTES % (AUTO) 12.1 %; MEAN CORPUSCULAR HEMOGLOBIN 27.6 pg (27.0-31.0); MEAN CORPUSCULAR HGB CONC 33.2 g/dL (32.0-36.0); MEAN CORPUSCULAR VOLUME 83.2 fL (81.0-99.0); MEAN PLATELET VOLUME 11.2 fL (7.9-10.8); MONOCYTES # (AUTO) 0.7 10^3/uL (0.0-1.0); MONOCYTES % (AUTO) 12.6 %; NEUTROPHILS # (AUTO) 3.9 10^3/uL (1.5-6.6); NEUTROPHILS % (AUTO) 74.3 %; PLT - PLATELET COUNT 158 10^3/uL (130-450); RED BLOOD COUNT 5.25 10^6/uL (4.20-5.40); RED CELL DISTRIBUTION WIDTH 12.7 % (12.0-15.0); WHITE BLOOD COUNT 5.3 x10^3/uL (4.8-10.8)
[2022-07-29 13:02] LABS: ALBUMIN 4.2 g/dL (3.2-5.5); ALBUMIN/GLOBULIN RATIO 1.2 (1.0-2.2); BILIRUBIN,TOTAL 0.6 mg/dL (0.2-1.0); CALCIUM 9.3 mg/dL (8.5-10.3); CREATININE 0.9 mg/dL (0.4-1.0); POTASSIUM 4.1 mmol/L (3.5-5.0); TOTAL PROTEIN 7.7 g/dL (6.7-8.2)
[2022-07-29 15:42] LABS: BILIRUBIN,URINE NEGATIVE (NEGATIVE); GLUCOSE, URINE (UA) NEGATIVE (NEGATIVE); KETONES,URINE (UA) 40 mg/dL (NEGATIVE); LEUKOCYTE ESTERASE, URINE NEGATIVE (NEGATIVE); NITRITE,URINE NEGATIVE (NEGATIVE); OCCULT BLOOD,URINE NEGATIVE (NEGATIVE); PH,URINE 5.5 PH (5.0-7.5); PROTEIN,URINE NEGATIVE (NEGATIVE); UROBILINOGEN,URINE 0.2 (NORMAL) E.U./dL (NORMAL)
[2022-07-29 15:47] LABS: CLARITY,URINE CLOUDY (CLEAR); HCG UR QUAL NEGATIVE
[2022-07-29 15:52] LABS: AMORPHOUS SEDIMENT,UR Marked /LPF; BACTERIA,URINE None Seen /HPF (None Seen); RBC,URINE 0-5 /HPF (0-5); SQUAMOUS EPITHELIAL CELL,UR MOD Squamous (<= Few); WBC,URINE 0-3 /HPF (0-5)
[2022-07-29] MEDS ORDERED: DROPERIDOL 5 MG/2 ML VIAL IVP STA (16:56)
[2022-07-29] MEDS ORDERED: ACETAMINOPHEN 325 MG TABLET PO STA (16:56)
[2022-07-29] MEDS ORDERED: KETOROLAC 30 MG/ML VIAL IVP STA (16:56)
[2022-07-29] MEDS ORDERED: SODIUM CHLORIDE 0.9% 1,000 ML IV STA ×2 (16:56→18:12)
--- NOTE | 2022-07-29 18:23 | ED Physician Documentation ---
History of Present Illness - Stated complaint Stated Complaint: FEVER,VOMITING - Chief complaint Chief Complaint: Abd Pain - History obtained from History obtained from: Patient - Additonal information Additional information: Patient comes to the emergency department chief complaint of fever chills, nausea and vomiting, and cough over the last 3 days. Patient states that it especially got worse yesterday. She denies dysuria. No headache or dizziness. Patient states she does feel very dehydrated because she has not been able to hold much down at home. Patient denies any sick contacts. No abdominal pain. No chest pain. No shortness of breath. She does not have a sore throat and denies any nasal congestion. Review of Systems Ten Systems: 10 systems reviewed and negative Constitutional: reports: Fever, Chills Eyes: reports: Reviewed and negative Ears: reports: Reviewed and negative Nose: reports: Reviewed and negative Throat: reports: Reviewed and negative Cardiac: reports: Reviewed and negative Respiratory: reports: Cough GI: reports: Nausea, Vomiting : reports: Reviewed and negative Skin: reports: Reviewed and negative Musculoskeletal: reports: Reviewed and negative Neurologic: reports: Reviewed and negative Psychiatric: reports: Reviewed and negative Endocrine: reports: Reviewed and negative Immunocompromised: reports: Reviewed and negative PD PAST MEDICAL HISTORY - Past Medical History Past Medical History: No Cardiovascular: None Respiratory: None - Past Surgical History 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 - Present Medications Home Medications: Ambulatory Orders Medication Instructions Recorded Confirmed Celecoxib [Celebrex] 200 mg PO DAILY 08/09/20 08/09/20 diphenhydrAMINE [Benadryl] 25 mg PO BID #15 capsule 08/09/20 Famotidine [Pepcid] 20 mg PO DAILY #20 tablet 01/02/21 Ibuprofen [Motrin] 600 mg PO TID PRN #15 tab 01/02/21 Ondansetron Odt [Zofran] 4 mg TL Q6H PRN #10 tablet 01/02/21 - Allergies Allergies/Adverse Reactions: Allergies Allergy/AdvReac Type Severity Reaction Status Date / Time celecoxib Allergy Rash Verified 07/29/22 12:27 Penicillins Allergy Hives Verified 07/29/22 12:27 - Social History Does the pt smoke?: Yes Smoking Status: Former smoker Does the pt drink ETOH?: No Does the pt have substance abuse?: No - Immunizations Immunizations are current?: Yes Immunizations: TDAP current <10years - POLST Patient has POLST: No PD ED PE NORMAL - Vitals Vital signs reviewed: Yes - General General: Alert and oriented X 3, No acute distress, Well developed/nourished, Other (The patient appears moderately uncomfortable but otherwise in no apparent distress) - HEENT HEENT: Atraumatic, PERRL, EOMI, Moist mucous membranes - Neck Neck: Supple, no meningeal sign - Cardiac Cardiac: No murmur, Strong equal pulses, Other (Tachycardic rate regular rhythm no murmurs) - Respiratory Respiratory: No respiratory distress, Clear bilaterally - Abdomen Abdomen: Soft, Non tender, Non distended - Derm Derm: Normal color, No rash, Other (Hot, dry) - Extremities Extremities: No deformity, No edema - Neuro Neuro: Alert and oriented X 3, nurse special 2-12 intact, Normal speech, Other (Grossly intact) - Psych Psych: Normal mood, Normal affect Results - Vitals Vitals: Vital Signs - 24 hr 07/29/22 07/29/22 07/29/22 12:27 15:37 17:00 Temperature 37.3 C 39.2 C H Heart Rate 140 H 110 H 114 H Respiratory 16 16 24 Rate Blood Pressure 109/55 L 106/59 L 109/73 O2 Saturation 98 98 96 07/29/22 18:10 Temperature 37.6 C Heart Rate 116 H Respiratory 17 Rate Blood Pressure 92/53 L O2 Saturation 97 Oxygen O2 Source Room air - Labs Labs: Laboratory Tests 07/29/22 07/29/22 07/29/22 12:31 12:40 12:40 WBC 5.3 RBC 5.25 Hgb 14.5 Hct 43.7 MCV 83.2 MCH 27.6 MCHC 33.2 RDW 12.7 Plt Count 158 MPV 11.2 H Neut # (Auto) 3.9 Lymph # (Auto) 0.6 L [place] # (Auto) 0.7 Eos # (Auto) 0.0 Baso # (Auto) 0.0 Absolute Nucleated RBC 0.00 Nucleated RBC % 0.0 Sodium 137 Potassium 4.1 Chloride 102 Carbon Dioxide 24 Anion Gap 11.0 BUN 10 Creatinine 0.9 Estimated GFR (MDRD) 78 L Glucose 94 Calcium 9.3 Total Bilirubin 0.6 AST 23 ALT 24 Alkaline Phosphatase 74 Total Protein 7.7 Albumin 4.2 Globulin 3.5 Albumin/Globulin Ratio 1.2 Lipase 21 L Urine Color YELLOW Urine Clarity CLOUDY Urine pH 5.5 Ur Specific [place] >=1.030 H Urine Protein NEGATIVE Urine Glucose (UA) NEGATIVE Urine Ketones 40 H Urine Occult Blood NEGATIVE Urine Nitrite NEGATIVE Urine Bilirubin NEGATIVE Urine Urobilinogen 0.2 (NORMAL) Ur Leukocyte Esterase NEGATIVE Urine RBC 0-5 Urine WBC 0-3 Ur Squamous Epith Cells MOD Squamous H Amorphous Sediment Marked Urine Bacteria None Seen Ur Microscopic Review INDICATED Urine Culture Comments NOT INDICATED Urine HCG, Qual NEGATIVE PD MEDICAL DECISION MAKING - ED course Complexity details: reviewed results, re-evaluated patient, considered differential, d/w patient ED course: The patient was started on IV fluids and given Tylenol, Toradol, and droperidol. Laboratory studies were unremarkable with a normal white blood cell count. Urinalysis was negative. At this point in time, the patient is pending completion of her fluids, and is also still pending a chest x-ray and respirator y PCR panel. She is signed out to Dr. Melo, pending these and final disposition. Departure - Departure Clinical Impression: Viral syndrome, Febrile illness Condition: Stable Instructions: ED Viral Syndrome, ED Diet Vomiting Diarrhea, ED Fever Control
[2022-07-29 18:38] LABS: B. PARAPERTUSSIS- RESP PCR PAN NOT DETECTED; B. PERTUSSIS- RESP PCR PANEL NOT DETECTED; C. PNEUMONIAE- RESP PCR PANEL NOT DETECTED; CORONAVIRUS 229E-RESP PCR NOT DETECTED; CORONAVIRUS HKU1-RESP PCR NOT DETECTED; CORONAVIRUS NL63-RESP PCR NOT DETECTED; CORONAVIRUS OC43-RESP PCR NOT DETECTED; HUMAN METAPNEUMOVIRUS NOT DETECTED; INFLUENZA A H3- RESP PCR PANEL DETECTED; INFLUENZA B - RESP PCR PANEL NOT DETECTED; M. PNEUMONIAE- RESP PCR PANEL NOT DETECTED; PARAINFLUENZA VIRUS 1 NOT DETECTED; PARAINFLUENZA VIRUS 2 NOT DETECTED; PARAINFLUENZA VIRUS 3 NOT DETECTED; PARAINFLUENZA VIRUS 4 NOT DETECTED; RHINOVIRUS/ENTEROVIRUS NOT DETECTED; RSV- RESP PCR PANEL NOT DETECTED; SARS-CoV-2 -RESP PCR PANEL NOT DETECTED
--- NOTE | 2022-07-29 18:56 | XRAY Report ---
PROCEDURE: Chest 1 View X-Ray INDICATIONS: fever/cough TECHNIQUE: One view of the chest was acquired. COMPARISON: 01/01/2019 FINDINGS: Surgical changes and devices: None. Lungs and pleura: Subtle airspace opacity in the right lung base versus vasculature. No pneumothorax or pleural effusion. Mediastinum: Mediastinal contours appear normal. Heart size is normal. Bones and chest wall: No suspicious bony lesions. Overlying soft tissues appear unremarkable. IMPRESSION: Possible subtle airspace opacity in the right lower lung field consistent with an early p neumonia. Reviewed by: Flaquito Green on 07/29/2022 6:55 PM [facility] Approved by: Flaquito Green on 07/29/2022 6:55 PM [facility] Station ID: [id number]
[2022-07-29 20:13] VITALS: BP 95/59
--- NOTE | 2022-07-29 20:16 | ED Physician Documentation ---
ED Addendum - Addendum Addendum: 07/29/22 20:13 Patient has tested positive for influenza A. She states she feels much better after treatment in the emergency department. Eating and drinking without difficulty. She request to go home at this time. We will place her on Xofluza. We will prescribe Zofran for home as well. Patient counseled regarding signs and symptoms for which I believe and urgent re-evaluation would be necessary. Patient with good understanding of and agreement to plan and is comfortable annel g home at this time This document was made in part using voice recognition software. While efforts are made to proofread this document, sound alike and grammatical errors may occur. Departure - Departure Disposition: Home, Self Care Clinical Impression: Viral syndrome, Febrile illness, Influenza A Condition: Stable Instructions: ED Diet Vomiting Diarrhea, ED Fever Control, ED Flu Follow-Up: TRESSA BOWMAN MD [Primary Care Provider] - As Needed Prescriptions: Baloxavir Marboxil [Xofluza] 40 mg PO ONCE #1 tablet Ondansetron Odt [Zofran] 4 mg TL Q6H PRN #10 tablet PRN Reason: Nausea / Vomiting Comments: Please follow-up with your doctor as needed for further care. Return if you worsen. You have tested positive for influenza A today. Please make sure you are drinking plenty of fluids. Your prescriptions were sent to the [facility] pharmacy. Forms: Activity restrictions
== END 2022-07-29 20:23 | disposition home or self-care (01) ==
LOC: ED 12:21
DX: J10.1 Influenza due to other identified influenza virus with other respiratory manifestations (principal); B34.9 Viral infection, unspecified; Z87.891 Personal history of nicotine dependence; Z20.822 Contact with and (suspected) exposure to COVID-19
CPT/HCPCS: 36415; 71045; 80053; 81001; 81025; 83690; 85025; 87633; 96361; 96374; 96375; 99282; 99284; A9270; 81003; 87086